=== PATIENT | female | born 1975 | race Caucasian/White ===

== ENCOUNTER 2017-02-10 11:15 | Emergency (ER) | payer MEDICARE ==
--- NOTE | 2017-03-08 21:25 | ER ---
ADMIT: 02/10/2017 RM/LOC: ER [facility] MR#: [id number] [id number] [id number] [address] KEITH [address] [place] [address] Emergency Room Report SEX: F AGE: 41 : 1975 DATE: 02/10/2017 HISTORY OF PRESENT ILLNESS: A 41-year-old female who had a marrow transplant recently at [facility]. Comes in with burning, stringing and frequency with urination. She is on prophylactic Bactrim. Urine was significant for 9 wbc's, 7 rbc's, leukocyte esterase was 1+. The patient was given prescription for Cipro and instructed to follow up with doctor this week. DIAGNOSIS: Urinary tract infection. Earl Bell MD/ elin JOB #: [id number] CC: Adilson Kaba MD, Attending Physician Angi Valera MD, Family Physician
== END 2017-02-10 14:40 | disposition home or self-care (01) ==
LOC: ER 11:15
DX: N39.0 Urinary tract infection, site not specified (principal); Z94.81 Bone marrow transplant status; Z79.899 Other long term (current) drug therapy

== ENCOUNTER 2017-04-13 23:01 | Emergency (ER) | payer MEDICARE, MEDICAID ==
--- NOTE | 2017-04-14 05:38 | ER ---
ADMIT: 04/13/2017 RM/LOC: ER 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 Comes in today with pleuritic left chest pain after lifting quite a few boxes recently. Does admit to cough. Denies any hemoptysis or near syncope. Exam remarkable for nontoxic, afebrile female with cushingoid appearance with normal O2 saturation 97%. Tender chest wall, reproducing chief complaint. Chest x-ray negative. CTA chest, abdomen, and pelvis shows no evidence of PE, pneumonia, or other abnormality. WBC 11.9. CRP 0.52. Lactic 1.2. Lipase 65. AST 99, ALT 180, and alkaline phosphatase 437. Glucose 137. Troponin less than 0.015. D- dimer 0.57. BNP 41. EKG shows sinus rhythm with poor R-wave and old inferior wall SD changes. The patient was given IV fluids, Zofran, Toradol, Dilaudid, developed pruritic slightly erythematous eruption and then she remembered she cannot take morphine for similar more severe reaction. Advised to our caregivers in the future that she is allergic to morphine. The patient has OxyContin at home that causes no rash with mild itching. Follow up Dr. Noel as scheduled on . Immanuel Mcguire MD/ elin JOB #: [id number] CC: Immanuel Mcguire MD, Attending Physician Angi Valera MD, Family Physician MD Angi Spence MD Mehmet S Copur, MD
== END 2017-04-14 02:00 | disposition home or self-care (01) ==
LOC: ER 23:01
DX: R07.89 Other chest pain (principal); I10 Essential (primary) hypertension; E11.9 Type 2 diabetes mellitus without complications; Z86.73 Personal history of transient ischemic attack (TIA), and cerebral infarction without residual deficits; F32.9 Major depressive disorder, single episode, unspecified; F41.9 Anxiety disorder, unspecified; E03.9 Hypothyroidism, unspecified; Z88.5 Allergy status to narcotic agent; Z88.6 Allergy status to analgesic agent; Z94.81 Bone marrow transplant status; Z90.49 Acquired absence of other specified parts of digestive tract; Z79.4 Long term (current) use of insulin; Z79.899 Other long term (current) drug therapy